=== PATIENT | female | born 1970 | race Caucasian/White ===

== ENCOUNTER 2018-01-22 07:35 | Emergency (ER) | payer MEDICAID, OTHER ==
[2018-01-22 08:16] VITALS: BP 127/73
[2018-01-22] MEDS ORDERED: Ondansetron ODT TAB* 4 MG PO ONE (09:37)
--- NOTE | 2018-01-22 09:42 | UC ---
Abdominal Pain Female HPI - HPI Summary HPI Summary: 2 weeks of progressively worsening left lower abdominal/groin pain and left low back/flank pain. Leaned over at work today and felt worse. Is very nauseated. No fever. Last BM yesterday normal. - History of Current Complaint Chief Complaint: UCLowerExtremity Stated Complaint: LEFT SIDE RIB/BACK PAIN Time Seen by Provider: 01/22/18 08:18 Hx Obtained From: Patient Hx Last Menstrual Period: 2 months ago Onset/Duration: Gradual Onset, Lasting Weeks, Still Present Timing: Constant Severity Initially: Mild Severity Currently: Moderate Pain Intensity: 9 Pain Scale Used: 0-10 Numeric Radiates: Yes Radiates to: Flank Character: Sharp Aggravating Factor(s): Nothing Alleviating Factor(s): Nothing Associated Signs and Symptoms: Positive: Back Pain, Nausea. Negative: Fever, Chest Pain, Constipation, Blood in Stool, Urinary Symptoms Allergies/Adverse Reactions: Allergies Allergy/AdvReac Type Severity Reaction Status Date / Time No Known Allergies Allergy Verified 01/22/18 08:00 Home Medications: Home Medications Ibuprofen TAB* [Advil TAB*] 1,200 mg PO ONCE PRN 01/22/18 [History Confirmed ] PARoxetine HCL TAB* [Paxil TAB*] 20 mg PO DAILY 01/22/18 [History Confirmed ] PMH/Surg Hx/FS Hx/Imm Hx Previously Healthy: Yes - Surgical History Surgical History: Yes Surgery Procedure, Year, and Place: appy - Family History Known Family History: Positive: Hypertension - Social History Alcohol Use: None Substance Use Type: None Smoking Status (MU): Heavy Every Day Tobacco Smoker Type: Cigarettes Amount Used/How Often: 1/2 PPD Review of Systems Constitutional: Negative Respiratory: Negative Cardiovascular: Negative Gastrointestinal: Abdominal Pain, Nausea Genitourinary: Negative All Other Systems Reviewed And Are Negative: Yes Physical Exam Triage Information Reviewed: Yes Appearance: Well-Nourished, Pain Distress - MODERATE Vital Signs: Initial Vital Signs Temp 98 F 01/22/18 08:12 Pulse 72 01/22/18 08:12 Resp 16 01/22/18 08:12 BP 127/73 01/22/18 08:12 Pulse Ox 100 01/22/18 08:12 Laboratory Tests 01/22/18 08:22 POC Urine Color Nely POC Urine Clarity Clear POC Urine pH 5.5 POC Ur Specif [place] 1.025 POC Urine Protein Trace A POC Ur Glucose (UA) Negative POC Urine Ketones Negative POC Urine Blood 2+ A POC Urine Nitrite Negative POC Urine Bilirubin Negative POC Urine Urobilinogen 0.2 POC U Leukocyte Esteras Negative Vital Signs Reviewed: Yes Eyes: Positive: Conjunctiva Clear ENT: Positive: Hearing grossly normal Neck: Positive: Supple Respiratory: Positive: No respiratory distress, No accessory muscle use Cardiovascular: Positive: Pulses Normal Abdomen Description: Positive: Soft, CVA Tenderness (L), Other: - LLQ TENDERNESS. Negative: CVA Tenderness (R), Distended Musculoskeletal: Positive: No Edema Neurological: Positive: Alert Psychological: Positive: Age Appropriate Behavior Skin: Negative: rashes Diagnostics - Radiology abd/pelvic ct w/o contrast Xray Interpretation: No Acute Changes Radiology Interpretation Completed By: Radiologist Abd Pain Female Course/Dx - Course Course Of Treatment: DISCUSSED TRANSFER TO ED FOR FURTHER EVAL. PT PREFERS EMPIRIC TX WITH ABX AND CLOSE F/U. CONCERN FOR DIVERTICULITIS. TX WITH CIPRO. LOW THRESHOLD FOR GOING TO ED IF SX WORSEN. - Differential Dx/Diagnosis Provider Diagnoses: 1. ABDOMINAL PAIN LLQ, NOS. 2. HEMATURIA Discharge - Sign-Out/Discharge Documenting (check all that apply): Patient Departure All imaging exams completed and their final reports reviewed: Yes - Discharge Plan Condition: Stable Disposition: HOME Prescriptions: Ciprofloxacin TAB* [Cipro 500 MG TAB*] 500 mg PO BID #20 tab Ondansetron ODT TAB* [Zofran Odt TAB*] 4 mg PO Q6H PRN #20 tab.odt PRN Reason: Nausea/Vomiting Patient Education Materials: Hematuria (ED), Abdominal Pain (ED) Forms: *Work Release Referrals: Tg Hoover [Primary Care Provider] - Additional Instructions: Your CT scan today was unremarkable. Unclear cause of your discomfort. No sign of urinary tract infection or kidney stone although you do have blood in your urine. Consider diverticulitis. Given your level of discomfort we'll treat empirically with Cipro twice daily for 10 days. Zofran for nausea. OTC meds as needed for discomfort. Stay well hydrated. Go to the ED without fail if you develop worsening pain, nausea, daniele bloody urine, fever or any other concerning symptoms. Hematuria: There is blood in the urine. This is called hematuria. Our evaluation today has not shown the exact cause for this. Blood can be found in the urine if there is infection or a kidney stone. These are usually fairly simple to diagnose. Inflammation in the kidney ( glomerulonephritis) can allow blood and protein to get into the urine. Abnormal blood vessels in the bladder or kidney can bleed into the urine. Stretching of the bladder, for example when an enlarged prostate blocks emptying of the bladder, is another common cause of blood in the urine. Rarely, it can be a symptom of a tumor in the urinary tract. Call the physician or return if you develop fever, vomiting, flank or back pain, pain on urination, or severe difficulty passing your urine. THE BLOOD IN YOUR URINE MAY BE DUE TO DEHYDRATION AND CONCENTRATED URINE. THERE IS NO SIGN OF INFECTION OR KIDNEY STONE AT PRESENT. HAVE YOUR URINE RECHECKED IN ABOUT 2 WEEKS TO ENSURE THE BLOOD HAS CLEARED. DRINK AT LEAST 2 L OF WATER DAILY. IF THE BLOOD DOES NOT CLEAR YOU WILL NEED TO SEE A UROLOGIST. - Billing Disposition and Condition Condition: STABLE Disposition: Home
--- NOTE | 2018-01-22 11:00 | RAD ---
Indication: Left flank pain. CT of the abdomen and pelvis was performed without oral or IV contrast administration. Coronal and sagittal reconstructed images were obtained. Lung bases demonstrate no pleural fluid, nodules or masses. Heart is of normal size without evidence of pericardial effusion. Calcified granuloma in the lingula is noted. Liver is normal in size. No focal lesions or intrahepatic ductal dilatation is noted. The gallbladder demonstrates no calcified gallstones. No pericholecystic fluid or wall thickening is noted. The spleen is normal in size. The pancreas demonstrates no mass or pancreatic duct dilatation. No adrenal lesions are noted. The kidneys demonstrate no hydronephrosis in either kidney. No focal masses are noted. Aorta and inferior vena cava are unremarkable. CT of the pelvis demonstrates no retroperitoneal or pelvic lymphadenopathy. No dilated loops of bowel are noted. The urinary bladder is unremarkable. No hernias are noted. IMPRESSION: No evidence of obstructive uropathy is noted. No hernias are noted. No abnormal masses or fluid collections are noted.
== END 2018-01-22 11:26 | disposition home or self-care (01) ==
LOC: UCCORT 07:35
DX: R10.32 Left lower quadrant pain (principal); R31.9 Hematuria, unspecified; F17.210 Nicotine dependence, cigarettes, uncomplicated
CPT/HCPCS: 74176; 81003; 99212; A9270-GY; G0463